=== PATIENT | female | born 2000 | race Caucasian/White ===

== ENCOUNTER 2023-10-19 11:02 | Emergency (ER) | payer OTHER, SELFPAY ==
[2023-10-19 11:11] VITALS: BP 123/78
--- NOTE | 2023-10-19 11:49 | ED.GENMED ---
History of Present Illness
General
Chief Complaint: Abdominal Symptoms
Source: patient
Time Seen by Provider: 10/19/23 11:26
Travel History
Have you had any contact with someone who has COVID-19?: No
Do you have any symptoms of coronavirus? Fever > 100 degrees, chills, cough, shortness of breath, sore throat, loss of taste or smell, muscle aches, or headache?: No
History of Present Illness
History of Present Illness:
23-year-old female with past medical history of asthma previous urinary tract infection and a left clubfoot presenting to the emergency department for evaluation of 2 days of nausea vomiting and diarrhea, patient believes that she could potentially
be allergic to lidocaine as she states that she had a lidocaine and steroid injection into her left clubfoot on Saturday by podiatry and woke up with the symptoms on . Patient states was mostly diarrhea and then yesterday was
mostly vomiting. Today states still feeling nauseous but no further vomiting, has a headache and lower back pain. No known sick contacts, recent travel or recent antibiotics. She did not attempt any medications for relief at home. Denies any
rashes or any other concerns.
Past History
Past History
ED Past Medical History: Asthma
ED Past Surgical History: Orthopedic
Social History
Tobacco: Vaping
Alcohol: None
Drug: None
Personal: Single
Living: with family
Review of Systems
Review of Systems
All Other Systems: ROS reviewed and negative except as documented in HPI and ROS
Phy Exam
Physical Exam
Physical Exam:
GENERAL: Alert , in no apparent distress
EYE: clear conjunctiva b/l
HEAD: NCAT
ENT: o/p clr, mmm.
CARDIAC: Regular rate and rhythm .
LUNGS: Clear breath sounds bilaterally, no acute respiratory distress, no wheezes/rales/rhonchi
ABDOMEN: Soft, without focal tenderness, no r/g, no cvat, negative Pappas sign, no tenderness at McBurney's point
NEUROLOGICAL: Alert and oriented
SKIN: Warm and dry, skin intact.
MUSCULOSKELETAL: No edema, well perfused.
PSYCH: Normal and appropriate interaction.
Scores
Heart Failure Risk
Heart Failure Risk Score: Not Applicable
Heart Score for Chest Pain Patients
STEMI patient?: Not applicable
Withdrawal Assessment of Alcohol
Withdrawal Assessment Completed?: Not applicable
Course
Orders/Labs/Results
Orders:
Orders
10/19/23 11:24
IV Insert/Care/Rem.- Treatment PRN
10/19/23 11:48
0.9% Sodium Chloride 1000 ml [Nss] 1,000 ml IV BOLUS
Ondansetron Injectable [Zofran] 4 mg IV NOW STA
10/19/23 11:49
Test Result ONCE
10/19/23 11:52
Acetaminophen [Tylenol] 1,000 mg PO NOW STA
10/19/23 11:54
Complete Blood Count/With Diff Urgent
Comprehensive Metabolic Panel Urgent
HCG, Serum Qualitative Screen Urgent
Lipase Urgent
10/19/23 12:47
Urinalysis Reflex To Culture Urgent
Date Specimen was Collected: 10/19/23
Time Specimen was Collected: 11:24
Urine Microscopic Reflex Cult Urgent
Abnormal Lab Results
10/19/23 10/19/23
11:54 12:47
MCH 31.1 H pg
(27.0-31.0)
RDW 11.3 L %
(11.5-14.5)
Absolute Lymphs (auto) 0.8 L 10^3/uL
(1.2-3.4)
Neutrophils % 78.1 H %
(42.2-75.2)
Lymphocytes % 14.2 L %
(20.5-51.1)
Sodium 133 L mmol/L
(135-145)
Total Bilirubin 1.6 H mg/dl
(0.2-1.3)
Urine Ketones 3+ A
(Negative)
Ur Occult Blood Reflex 2+ A
(Negative)
Urine Bilirubin 1+ A
(Negative)
Leukocyte Esterase Rfl Trace A
(Negative)
Urine RBC 3-6 A /HPF
(0-2)
Urine Bacteria (Reflex) Few A
(Negative)
10/19/23 11:54
10/19/23 11:54
Vital Signs
Initial and Last Documented VS:
Initial Vital Signs
Temp Pulse Resp BP Pulse Ox
98.2 F 97 16 123/78 97
10/19/23 11:11 10/19/23 11:11 10/19/23 11:11 10/19/23 11:11 10/19/23 11:11
Last Documented Vital Signs
Temp Pulse Resp BP Pulse Ox
98.2 F 97 16 123/78 97
10/19/23 11:11 10/19/23 11:11 10/19/23 11:11 10/19/23 11:11 10/19/23 11:11
MDM/Problems Addressed
Differential Diagnosis Includes:
Gastroenteritis, colitis, , flu, I do not have concern for an allergic reaction
MDM/Problems Addressed:
23-year-old female presenting emergency department with 48 hours of nausea vomiting diarrhea. Hemodynamically stable. Ill-appearing but nontoxic. Reassuring abdominal exam. Will check labs and treat with Zofran and fluids. Reassessment
following.
*Pulse Oximetry
Patient hypoxic: no
*Critical Care Note
Total Time (30-74mins, 75-104mins- exclusive of procedures): Not Applicable
Patient Management
Escalation/DeEscalation of care consider admission/obs:
On reevaluation patient is feeling significantly improved following fluids and medications. She was able to tolerate p.o. Patient is requesting be discharged home. Prescription for Zofran sent to patient's pharmacy. Advised on return precautions
but otherwise stable for discharge home.
ED Attending Note
-
Portions of this chart may have been created with voice recognition software.� Occasional wrong word or��sound alike� substitutions may have occurred due to the inherent limitations of voice recognition software.
Discharge Plan
Departure
Patient Disposition: Home (Routine Discharge)
Date of Disposition: 10/19/23
Time of Disposition: 13:17
Patient with high blood pressure during this ER visit?: No
Discharge Problem:
Nausea and vomiting, Diarrhea
Instructions: Nausea and Vomiting, Adult (DC)
Prescriptions:
New
ondansetron 4 mg Tablet,Disintegrating
4 mg PO TIDPRN PRN (Reason: nausea/vomiting) Qty: 10 0RF
No Action
loperamide [Imodium A-D] 2 mg capsule
2 mg PO Q6H PRN (Reason: loose stool) Qty: 7 0RF
nitrofurantoin monohyd/m-cryst [Macrobid] 100 mg capsule
100 mg PO Q12H 5 Days Qty: 10 0RF
Referrals:
Amanuel Rice MD [Family Provider] -
Interventions
Interventions:
*Risk Screen - Suicide Last Done: 10/19/23 11:11
*General Assessment Last Done: 10/19/23 11:11
*Neglect/Abuse Screening Last Done: 10/19/23 11:11
ED- Fall Risk Assessment Last Done: 10/19/23 12:02
*Nursing Disposition Last Done: 10/19/23 13:22
LR-Qhqsmn-Gjspedpjwg Assessment Last Done: 10/19/23 12:02
Discharge Date and Time
Discharge Date/Time: 10/19/23 13:23
[2023-10-19] MEDS: NSS 1000 IV (11:58)
[2023-10-19 12:07] LABS: % Basophils 0.4 % (0-2); % Eosinophils 0.6 % (0-6); % Immature Granulocytes 0.4 % (0-0.5); % Lymphocytes 14.2 % (20.5-51.1); % Monocytes 6.3 % (1.7-9.3); % Neutrophils 78.1 % (42.2-75.2); Absolute Lymphocytes 0.8 10^3/uL (1.2-3.4); Absolute Monocytes 0.3 10^3/uL (0.1-0.6); Absolute Neutrophils 4.1 10^3/uL (1.4-6.5); Hematocrit 37.4 % (37.0-47.0); Hemoglobin 13.3 g/dL (12.0-16.0); Mean Corp Hgb Conc. 35.6 g/dL (33.0-37.0); Mean Corpuscular Hgb 31.1 pg (27.0-31.0); Mean Corpuscular Volume 87.6 fL (81.0-99.0); Mean Platelet Volume 9.7 fL (7.4-10.4); Nucleated Red Blood Cells % 0 %; Platelet Count 227 10^3/uL (130-400); Red Blood Cell Count 4.27 10^6/uL (4.20-5.40); Red Cell Dist. Width 11.3 % (11.5-14.5); White Blood Cell Count 5.3 10^3/uL (4.8-10.8)
[2023-10-19] MEDS: TYLENOL 1000 MG PO (12:17)
[2023-10-19] MEDS: ZOFRAN 4 MG IV (12:18)
[2023-10-19 12:19] VITALS: BMI 24.8
[2023-10-19 12:22] LABS: HCG, Serum Qualitative Screen Negative
[2023-10-19 12:26] LABS: ALT (SGPT) 15 U/L (0-35); AST (SGOT) 19 U/L (14-36); Albumin 4.1 g/dl (3.5-5.0); Alkaline Phosphatase 45 U/L (38-126); Blood Urea Nitrogen 16 mg/dl (7-17); Calcium 8.6 mg/dl (8.4-10.2); Carbon Dioxide 23 mmol/L (22-30); Chloride 107 mmol/L (98-107); Estimated Creatinine Clearance 97 ml/min; Glucose 81 mg/dl (70-99); Lipase 47 U/L (23-300); Sodium 133 mmol/L (135-145); Total Bilirubin 1.6 mg/dl (0.2-1.3); Total Protein 6.8 g/dl (6.3-8.2); eGFR > 60.00
[2023-10-19 13:15] LABS: Urine Albumin Trace (Neg - Trace); Urine Bilirubin 1+ (Negative); Urine Character Clear (Clear); Urine Color Yellow; Urine Glucose Negative (Negative); Urine Ketone 3+ (Negative); Urine Leukocyte Trace (Negative); Urine Nitrite Negative (Negative); Urine Occult Blood 2+ (Negative); Urine Urobilinogen 1+ (Neg - 1+)
[2023-10-19 13:31] LABS: Urine Bacteria Few (Negative); Urine Mucus Many; Urine Squamous Cell 16-20 /LPF (Few); Urine White Cell 0-2 /HPF (0-5)
== END 2023-10-19 13:23 | disposition home or self-care (01) ==
LOC: EMR 11:02
PROVIDERS: EMERGENCY PHYSICIAN Emergency Medicine; FAMILY PHYSICIAN Family Medicine
DX: R11.2 Nausea with vomiting, unspecified (principal); R19.7 Diarrhea, unspecified; Q66.89 Other specified congenital deformities of feet; J45.909 Unspecified asthma, uncomplicated; F17.290 Nicotine dependence, other tobacco product, uncomplicated; Z87.440 Personal history of urinary (tract) infections
CPT/HCPCS: 99283; 96374; 96361; 80053; 81003; 81015; 83690; 84703; 85025

== ENCOUNTER 2023-12-01 17:10 | Emergency (ER) | payer OTHER, SELFPAY ==
[2023-12-01 17:19] VITALS: BP 117/76
--- NOTE | 2023-12-01 17:53 | ED.GENMED ---
History of Present Illness
General
Chief Complaint: Flank Pain
Source: patient
Exam Limitations: none
Time Seen by Provider: 12/01/23 17:52
Nursing documentation reviewed up to this point in time: agreed with
Travel History
Have you had any contact with someone who has COVID-19?: No
Do you have any symptoms of coronavirus? Fever > 100 degrees, chills, cough, shortness of breath, sore throat, loss of taste or smell, muscle aches, or headache?: No
History of Present Illness
History of Present Illness:
23 y/o F with h/o GERD, uti, ASTHMA
here with left sided back pain that began 2 weeks ago, today worsening with left upper quad pain as well
she startd with mild pain and UTI sxs with dysuria, frequency, urgency. pt went to urgent care and she had UA which she isn't sure what the result was, but she was given macrobid x 5 days. pt completed the course of abx and he dysuria went away
but she still had the back pain and pressure with urination
went to her PCP and had urine dip which showed blood but she said the culture was neg. she was given 5 days cipro 250 mg bid which she just completed toay.
she woke up with worsening LUQ and back pain and some nausea
vapes nicotine
occ alcohol
no vomiting, diarrhea, constipatino, dysuria, hematuria
pt is not having any vaginal symptoms
she has 1 sexual partner.
Past History
Past History
ED Past Medical History: Asthma
ED Past Surgical History: Orthopedic
Social History
Tobacco: Vaping
Alcohol: None
Drug: None
Personal: Single
Living: with family
Phy Exam
Physical Exam
Physical Exam:
GENERAL: Alert , in no apparent distress, nontoxic appearing
EYE: pupils equal and reactive
NECK: Supple
ENT: o/p clr, mmm.
CARDIAC: Regular rate and rhythm .
LUNGS: Clear breath sounds bilaterally, no acute respiratory distress, no wheezes/rales/rhonchi
lungs clear
ABDOMEN: Soft, mild left upper quad tendenress, no r/g, normal bowel sounds
back: mmild left sided lumbar/cva regtion tendenress;
NEUROLOGICAL: Alert and oriented, no focal neuro deficits
SKIN: Warm and dry, skin intact.
MUSCULOSKELETAL: No edema, well perfused.
PSYCH: Normal and appropriate interaction.
Course
Orders/Labs/Results
Orders:
Orders
12/01/23 17:44
Acetaminophen [Tylenol] 650 mg .ROUTE .STK-MED ONE
12/01/23 18:05
Morphine Sulfate 4 mg IV NOW STA
12/01/23 18:06
Test Result ONCE
12/01/23 18:07
0.9% Sodium Chloride 1000 ml [Nss] 1,000 ml IV BOLUS
12/01/23 18:35
Complete Blood Count/With Diff Urgent
Comprehensive Metabolic Panel Urgent
HCG, Serum Qualitative Screen Urgent
Lipase Urgent
Urinalysis Reflex To Culture Urgent
Date Specimen was Collected: 12/01/23
Time Specimen was Collected: 18:28
Urine Microscopic Reflex Cult Urgent
12/01/23 19:17
CT Abd/pel Without Iv Or Oral Urgent
Comment:
Reason For Exam: left sided back pain upper abd pain, hematuria
Abnormal Lab Results
12/01/23
18:35
Ur Occult Blood Reflex 1+ A
(Negative)
Leukocyte Esterase Rfl Trace A
(Negative)
Urine RBC 3-6 A /HPF
(0-2)
Urine Bacteria (Reflex) Few A
(Negative)
12/01/23 18:35
12/01/23 18:35
Vital Signs
Initial and Last Documented VS:
Initial Vital Signs
Temp Pulse Resp BP Pulse Ox
98.4 F 87 20 117/76 97
12/01/23 17:19 12/01/23 17:19 12/01/23 17:19 12/01/23 17:19 12/01/23 17:19
Last Documented Vital Signs
Temp Pulse Resp BP Pulse Ox
98.4 F 89 18 97/72 96
12/01/23 17:19 12/01/23 18:39 12/01/23 18:39 12/01/23 18:39 12/01/23 18:39
MDM/Problems Addressed
Differential Diagnosis Includes:
pancreatitis, uti, kidney stone, pyelo, constipation, gas pain, GERD
MDM/Problems Addressed:
23 y/o F with sxs of UTI 2 weeks ago, treate dwith 2 rounds abx but with left sided back pain ongoin and now LUQ pain
she last had bm today
doesn't feel like gerd
no vomiting
nontoxic appearing
mild left back and left upper quad tenderness, lungs clear, no splinting
no lower abd tenderness
pt is not concerned with STI
has gyne f/u this week
labs reviewed, normal wbc, lfts, lipase, ua contamianted but with microscopic hematuria
ct a/p stone search neg
mod stool burden
minimal peritoneal fluid in pelvis nonspecific
pt is well appearing
reassessed
pain improved
allyssa try miralax and bentyl.
return precautions
*Critical Care Note
Total Time (30-74mins, 75-104mins- exclusive of procedures): Not Applicable
ED Attending Note
-
Portions of this chart may have been created with voice recognition software.� Occasional wrong word or��sound alike� substitutions may have occurred due to the inherent limitations of voice recognition software.
Discharge Plan
Departure
Patient Disposition: Home (Routine Discharge)
Date of Disposition: 12/01/23
Time of Disposition: 20:41
Patient with high blood pressure during this ER visit?: No
Condition: Fair
Covid-19: Not Applicable
Discharge Problem:
Abdominal pain, Back pain, Microscopic hematuria
Instructions: Constipation, Adult (DC), Abdominal Pain, Adult ED
Prescriptions:
New
dicyclomine 20 mg tablet
20 mg PO TID PRN (Reason: abdominal pain) Qty: 15 0RF
No Action
loperamide [Imodium A-D] 2 mg capsule
2 mg PO Q6H PRN (Reason: loose stool) Qty: 7 0RF
nitrofurantoin monohyd/m-cryst [Macrobid] 100 mg capsule
100 mg PO Q12H 5 Days Qty: 10 0RF
ondansetron 4 mg Tablet,Disintegrating
4 mg PO TIDPRN PRN (Reason: nausea/vomiting) Qty: 10 0RF
Referrals:
Amanuel Rice MD [Family Provider] - Follow up in 2-3 days
Activity Restrictions/Additional Instructions:
WE ARE NOT TOTALLY SURE THE CAUSE OF YOUR PAIN BUT YOU HAD A MODERATE AMOUNT OF STOOL IN YOUR COLON WHICH COULD CERTAINLY CAUSE BACK AND ABDOMIANL PAIN
YOU SHOULD TRY MIRALAX ONCE OR TWICE A DAY FOR 3 ADYS IN A ROW NEEDED FOR EMPTYING YOUR COLON
DRINK FLUIDS
TRY TYLENOL EVERY 6 HOURS NEEDED FOR PAIN
YOU CAN ALSO TRY BENTYL 20 MG 2-3 TIMES A DAY FOR PAIN WELL, THIS WOULD TREAT BOWEL PAIN
EAT A BLAND DIET
FOLLOW UP WITH [facility] PLANNED THIS WEEK
YOUR URINE DID NOT LOOK OVERLY INFECTED, A CULTURE WILL RESULT IN A FEW DAYS
RETURN FOR ANY CONCERNS: FEVER, SEVERE PAIN, SEVERE DIARRHEA OR VOMITING, TROUBLE BREATHING OR ANY CONCENRS.
Interventions
Interventions:
*Risk Screen - Suicide Last Done: 12/01/23 17:19
*General Assessment Last Done: 12/01/23 17:19
*Neglect/Abuse Screening Last Done: 12/01/23 17:19
ED- Fall Risk Assessment Last Done: 12/01/23 18:42
HA-Zuahvt-Vnditutrbf Assessment Last Done: 12/01/23 18:41
[2023-12-01] MEDS: NSS 1000 IV (18:35)
[2023-12-01] MEDS: MORPHINE SULFATE 4 MG IV (18:36)
[2023-12-01 18:39] VITALS: BP 97/72
[2023-12-01 18:47] LABS: % Basophils 0.5 % (0-2); % Eosinophils 4.5 % (0-6); % Immature Granulocytes 0.2 % (0-0.5); % Lymphocytes 41.3 % (20.5-51.1); % Monocytes 5.5 % (1.7-9.3); Absolute Eosinophils 0.4 10^3/uL (0-0.7); Absolute Lymphocytes 3.4 10^3/uL (1.2-3.4); Absolute Monocytes 0.5 10^3/uL (0.1-0.6); Absolute Neutrophils 3.9 10^3/uL (1.4-6.5); Hematocrit 40.1 % (37.0-47.0); Hemoglobin 14.1 g/dL (12.0-16.0); Mean Corp Hgb Conc. 35.2 g/dL (33.0-37.0); Mean Corpuscular Hgb 30.8 pg (27.0-31.0); Mean Corpuscular Volume 87.6 fL (81.0-99.0); Mean Platelet Volume 9.9 fL (7.4-10.4); Nucleated Red Blood Cells % 0 %; Platelet Count 303 10^3/uL (130-400); Red Blood Cell Count 4.58 10^6/uL (4.20-5.40); Red Cell Dist. Width 11.5 % (11.5-14.5); White Blood Cell Count 8.2 10^3/uL (4.8-10.8)
[2023-12-01 18:48] LABS: Urine Albumin Negative (Neg - Trace); Urine Bilirubin Negative (Negative); Urine Character Clear (Clear); Urine Color Straw; Urine Glucose Negative (Negative); Urine Ketone Negative (Negative); Urine Leukocyte Trace (Negative); Urine Nitrite Negative (Negative); Urine Occult Blood 1+ (Negative); Urine Specific Gravity 1.015 (<1.030); Urine Urobilinogen Negative (Neg - 1+)
[2023-12-01 19:04] LABS: ALT (SGPT) 23 U/L (0-35); AST (SGOT) 26 U/L (14-36); Albumin 4.4 g/dl (3.5-5.0); Alkaline Phosphatase 53 U/L (38-126); Blood Urea Nitrogen 10 mg/dl (7-17); Calcium 9.2 mg/dl (8.4-10.2); Carbon Dioxide 25 mmol/L (22-30); Chloride 105 mmol/L (98-107); Glucose 92 mg/dl (70-99); Lipase 93 U/L (23-300); Potassium 3.7 mmol/L (3.5-5.1); Sodium 136 mmol/L (135-145); Total Protein 7.7 g/dl (6.3-8.2); eGFR > 60.00
[2023-12-01 19:05] LABS: HCG, Serum Qualitative Screen Negative
[2023-12-01 19:41] LABS: Urine Bacteria Few (Negative); Urine Squamous Cell >30 /LPF (Few)
== END 2023-12-01 21:34 | disposition home or self-care (01) ==
LOC: EMR 17:10
PROVIDERS: Physician Assistant; EMERGENCY PHYSICIAN Emergency Medicine; FAMILY PHYSICIAN Family Medicine
DX: R10.12 Left upper quadrant pain (principal); M54.9 Dorsalgia, unspecified; R11.0 Nausea; R31.29 Other microscopic hematuria; K21.9 Gastro-esophageal reflux disease without esophagitis; J45.909 Unspecified asthma, uncomplicated; M19.90 Unspecified osteoarthritis, unspecified site; F17.290 Nicotine dependence, other tobacco product, uncomplicated; Z87.440 Personal history of urinary (tract) infections; Z88.6 Allergy status to analgesic agent; Z88.1 Allergy status to other antibiotic agents; Z88.2 Allergy status to sulfonamides
CPT/HCPCS: 99284; 96374; 96361; 74176; 80053; 81003; 81015; 83690; 84703; 85025

== ENCOUNTER 2025-07-10 12:55 | Emergency (ER) | payer OTHER, SELFPAY ==
[2025-07-10 13:01] VITALS: BP 117/75
[2025-07-10 13:19] LABS: Hematocrit 41.1 % (37.0-47.0); Hemoglobin 14.0 g/dL (12.0-16.0); Mean Corp Hgb Conc. 34.1 g/dL (33.0-37.0); Mean Corpuscular Volume 90.3 fL (81.0-99.0); Nucleated Red Blood Cells % 0 %; Platelet Count 287 10^3/uL (130-400); Red Cell Dist. Width 11.0 % (11.5-14.5)
[2025-07-10 13:28] LABS: Urine Character Clear (Clear)
[2025-07-10 13:32] LABS: HCG, Serum Qualitative Screen Negative
[2025-07-10 13:36] LABS: ALT (SGPT) 39 U/L (0-35); AST (SGOT) 26 U/L (14-36); Albumin 4.6 g/dl (3.5-5.0); Alkaline Phosphatase 52 U/L (38-126); Blood Urea Nitrogen 11 mg/dl (7-17); Calcium 9.4 mg/dl (8.4-10.2); Carbon Dioxide 27 mmol/L (22-30); Chloride 107 mmol/L (98-107); Glucose 102 mg/dl (70-99); Lipase 94 U/L (23-300); Potassium 4.6 mmol/L (3.5-5.1); Sodium 139 mmol/L (135-145); Total Protein 7.7 g/dl (6.3-8.2); eGFR > 60.00
[2025-07-10] MEDS: TORADOL 15 MG IV (14:54)
[2025-07-10 14:58] VITALS: BP 97/62
[2025-07-10 15:00] VITALS: BP 98/63
--- NOTE | 2025-07-10 16:19 | ED.GENMED ---
History of Present Illness
General
Chief Complaint: Abdominal Pain
Source: patient
Exam Limitations: none
Time Seen by Provider: 07/10/25 14:15
Nursing documentation reviewed up to this point in time: agreed with
History of Present Illness
History of Present Illness:
25-year-old female past medical history of asthma presenting to the emergency department today with concerns of right side abdominal pain over the past few days has had slight loss of appetite. Denies any urinary symptoms
Past History
Past History
ED Past Medical History: Asthma
ED Past Surgical History: Orthopedic
Social History
Tobacco: Vaping
Alcohol: None
Drug: None
Personal: Single
Living: with family
Review of Systems
Review of Systems
Allergies reviewed?: Yes
All Other Systems: ROS reviewed and negative except as documented in HPI and ROS
Phy Exam
Physical Exam
Physical Exam:
GENERAL: Alert , in no apparent distress
EYE: pupils equal and reactive
NECK: Supple, no significant adenopathy.
ENT: o/p clr, mmm.
CARDIAC: Regular rate and rhythm .
LUNGS: Clear breath sounds bilaterally, no acute respiratory distress, no wheezes/rales/rhonchi
ABDOMEN:
NEUROLOGICAL: Alert and oriented, no focal neuro deficits
SKIN: Warm and dry, skin intact.
MUSCULOSKELETAL: No edema, well perfused.
PSYCH: Normal and appropriate interaction.
Pain to the right lower quadrant otherwise soft abdomen
Course
Orders/Labs/Results
Orders:
Orders
07/10/25 13:03
Test Result ONCE
07/10/25 13:08
Complete Blood Count/With Diff Urgent
Comprehensive Metabolic Panel Urgent
HCG, Serum Qualitative Screen Urgent
Lipase Urgent
Urinalysis Reflex To Culture Urgent
Date Specimen was Collected: 07/10/25
Time Specimen was Collected: 13:03
Urine Microscopic Reflex Cult Urgent
Urine Culture Urgent
ELOY Source: U
Specimen Description:
Date Specimen was Collected: 07/10/25
Time Specimen was Collected: 13:03
07/10/25 14:36
CT Abd/Pel (IV only)-DH only Urgent
Comment:
Reason For Exam: RLQ pain
Ketorolac [Toradol] 15 mg IV NOW STA
Abnormal Lab Results
07/10/25
13:08
RDW 11.0 L %
(11.5-14.5)
Glucose 102 H mg/dl
(70-99)
ALT 39 H U/L
(0-35)
Ur Occult Blood Reflex 3+ A
(Negative)
Urine RBC 3-6 A /HPF
(0-2)
Urine Bacteria (Reflex) Moderate A
(Negative)
Urine Albumin (Reflex) 1+ A
(Neg - Trace)
07/10/25 13:08
07/10/25 13:08
Vital Signs
Initial and Last Documented VS:
Initial Vital Signs
Temp Pulse Resp BP Pulse Ox
98.0 F 105 16 117/75 95
07/10/25 13:01 07/10/25 13:01 07/10/25 13:01 07/10/25 13:01 07/10/25 13:01
Last Documented Vital Signs
Temp Pulse Resp BP Pulse Ox
98.0 F 105 16 98/63 97
07/10/25 13:01 07/10/25 13:01 07/10/25 13:01 07/10/25 15:00 07/10/25 15:15
MDM/Problems Addressed
MDM/Problems Addressed:
25-year-old female presenting with concerns of right lower quadrant abdominal pain. Ongoing for the past 2 days. On arrival here mildly tachycardic but improved without specific treatment. Otherwise vital signs are normal. Labs unremarkable
urinalysis without signs of infection. Patient does have mild pain to the right lower quadrant on physical examination. CT scan did not show any emergent findings other than possible previous ovarian cyst rupture. No signs of emergent process
advised for close outpatient follow-up. Return precautions given.
*Pulse Oximetry
SaO2: 97
Oxygen Mode of Delivery: Room air
Patient hypoxic: no (97)
*Critical Care Note
Total Time (30-74mins, 75-104mins- exclusive of procedures): Not Applicable
ED Attending Note
-
Portions of this chart may have been created with voice recognition software.� Occasional wrong word or��sound alike� substitutions may have occurred due to the inherent limitations of voice recognition software.
Discharge Plan
Departure
Patient Disposition: Home (Routine Discharge)
Date of Disposition: 07/10/25
Time of Disposition: 16:23
Patient with high blood pressure during this ER visit?: No
Condition: Good
Covid-19: Not Applicable
Discharge Problem:
Abdominal pain
Instructions: Abdominal Pain
Prescriptions:
No Action
loperamide [Imodium A-D] 2 mg capsule
2 mg PO Q6H PRN (Reason: loose stool) Qty: 7 0RF
nitrofurantoin monohyd/m-cryst [Macrobid] 100 mg capsule
100 mg PO Q12H 5 Days Qty: 10 0RF
ondansetron 4 mg Tablet,Disintegrating
4 mg PO TIDPRN PRN (Reason: nausea/vomiting) Qty: 10 0RF
dicyclomine 20 mg tablet
20 mg PO TID PRN (Reason: abdominal pain) Qty: 15 0RF
Referrals:
Amanuel Rice MD [Family Provider, Family Practice]
Activity Restrictions/Additional Instructions:
You came to the emergency department today with concerns of abdominal pain mainly to the right lower quadrant. Here your reassuring assessment. Please follow closely as an outpatient. Return for any worsening, new or concerning symptoms.
Interventions
Interventions:
*Risk Screen - Suicide Last Done: 07/10/25 14:26
*General Assessment Last Done: 07/10/25 14:26
*Neglect/Abuse Screening Last Done: 07/10/25 14:26
*ED- Fall Risk Assessment Last Done: 07/10/25 14:26
*ED COVID-19 Vaccine History Last Done: 07/10/25 14:26
*ED Influenza Vaccine History Last Done: 07/10/25 14:26
BL-Srpckk-Rizomyckny Assessment Last Done: 07/10/25 14:26
Discharge Date and Time
Print Language: BANGLADESHI
== END 2025-07-10 16:39 | disposition home or self-care (01) ==
LOC: EMR 12:55
PROVIDERS: EMERGENCY PHYSICIAN Emergency Medicine; FAMILY PHYSICIAN Family Medicine
DX: R10.31 Right lower quadrant pain (principal); R19.7 Diarrhea, unspecified; R63.0 Anorexia; R00.0 Tachycardia, unspecified; J45.909 Unspecified asthma, uncomplicated; K21.9 Gastro-esophageal reflux disease without esophagitis; M19.90 Unspecified osteoarthritis, unspecified site; Q66.89 Other specified congenital deformities of feet; F17.290 Nicotine dependence, other tobacco product, uncomplicated; Z88.6 Allergy status to analgesic agent; Z88.1 Allergy status to other antibiotic agents; Z88.2 Allergy status to sulfonamides
CPT/HCPCS: 99284; 96374; 74177; 80053; 81003; 81015; 83690; 84703; 85025; 87086; Q9967